=== PATIENT | female | born 1935 | race Caucasian/White ===

== ENCOUNTER 2016-11-27 16:40 | Emergency (ER) | payer OTHER ==
[~2016-11-27] VITALS: Ht 154.9 cm; Wt 95.9 kg
[~2016-11-27 16:40] MED LIST: ACIDOPHILUS1 EAC4 PO; ADVIL,NUPRIN,M200 MG PO; AMLODIPINE BESYL5 MG PO; AVELOX400 MG PO; Ascorbic Acid,Ester- PO; B COMPLETE1 EACH PO; BIOTIN2500 MCG PO; BUDESONIDE0.25 MG/2 IH; CALCIUM + D 601 EACH PO; CALCIUM 600 +1 EAC1 PO; CEFEPIME HCL2 GM IV; CEFTIN500 MG PO; CIPRO500 MG PO; CIPRODEX OTIC7.5 ML RIGHT EAR; CLOPIDOGREL75 MG PO; COZAAR50 MG PO; Caltrate 600/400 PO; Cozaar PO; DAILY VITAMIN1 EAC8 PO; DAIRY RELIE3000 UNIT PO; DAIRY RELIE9000 UNIT PO; DITROPAN XL10 MG PO; DITROPAN XL5 MG PO; DUONEB 2.5-0.5 M3 ML IH; Ditropan PO; Dulcolax PO; ECOTRIN81 M1 PO; EVISTA60 MG PO; Ecotrin PO; FENTANYL1 EAC1 TD; FISH OIL 1,0001 EA10 PO; FISH OIL 1,0001 EA11 PO; FISH OIL 1,0001 EAC7 PO; FISH OIL CONC1 EACH PO; FISH OIL300 MG PO; FLAGYL500 MG PO; FLAX OIL1000 MG PO; FLAXSEED OIL1000 M4 PO; FUROSEMIDE40 MG PO; Feosol PO; Flexeril PO; Folvite PO; GABAPENTIN100 MG PO; GABAPENTIN300 MG PO; GLIPIZIDE ER2.5 M1 PO; GLIPIZIDE XL5 MG PO; GLUCOSAMINE &1 EACH PO; GRALISE600 MG PO; Glucophage PO; Glucotrol PO; K-DUR20 MEQ PO; KENALOG,ARISTOC15 GM TP; KLOR-CON 1010 ME1 PO; KLOR-CON M1010 MEQ PO; LASIX40 MG PO; LEVAQUIN500 MG PO; LIDODERM 5% P1 PATCH TD; LO-DOSE ASPIRIN81 M2 PO; LOPRESSOR25 MG PO; LOSARTAN POTASS50 MG PO; Lasix PO; Lopressor PO; METFORMIN HCL500 MG PO; METOPROLOL TART50 MG PO; METRONIDAZOLE500 MG PO; MILK OF MAGN PO; MONTELUKAST SOD10 MG PO; MORPHINE SULFAT15 M1 PO; MORPHINE SULFAT30 M2 PO; MS CONTIN,ORAMO15 M1 PO; MULTIVITAMIN1 EAC1 PO; Micro-K,K-Tab,K-Dur, PO; Miralax, Glycolax PO; NEURONTIN300 MG PO; NIZORAL A-D120 ML TP; NORVASC5 MG PO; Neurontin PO; OXYBUTYNIN CHLOR5 MG PO; OXYCODONE HCL10 MG PO; OXYCODONE-APAP1 EACH PO; Ocuvite PO; PERCOCET 10/1 TABLET PO; PERCOCET 5/31 TABLET PO; PREDNISONE10 MG PO; PREDNISONE20 MG PO; PROAIR HFA8.5 GM IH; PROTONIX40 MG PO; PROVENTIL,2.5 MG/3 M IH; PULMICORT0.5 MG/21 IH; Percocet 7.5/325,End PO; Pravachol PO; Protonix PO; Proventil,Ventolin H IH; SIMVASTATIN20 MG PO; SINGULAIR10 MG PO; SPIRIVA1 INHALATI IH; Senokot S,Pericolace PO; Skelaxin PO; TRIAMCINOLONE A15 G1 TP; TRICOR145 MG PO; TYLENOL EXTRA500 MG PO; TYLENOL REGULA325 MG PO; Theragran PO; VANCOMYCIN HCL1 GM IV; VITAMIN B COMPLEX PO; VITAMIN D1000 INTUN PO; Vicodin,Norco 5/325 PO; Vitamin D PO; ZOCOR20 MG PO; ZYVOX600 MG PO; celeBREX PO
[2016-11-27 21:59] LABS: EOSINOPHIL (%) 0.5 % (0-5); HEMATOCRIT 37.3 % (36.0-46.0); IMMATURE GRANULOCYTE (%) 0.8 % (0.0-0.7); IMMATURE GRANULOCYTE COUNT 0.1 K/uL; INSTRUMENT ABS NEUTROPHIL CT 4.4 K/uL; LYMPHOCYTE COUNT 2.5 K/uL (1.0-2.8); MCHC 31.9 G/DL (30.0-36.0); MCV 90.8 FL (83-99); MEAN PLAT.VOLUME 9.2 uM^3 (9.5-12.4); MONOCYTE (%) 10.3 % (3-12); MONOCYTE COUNT 0.8 K/uL (0-0.8); NEUTROPHIL (%) 56.1 % (45-76); NEUTROPHIL COUNT 4.4 K/uL (1.8-6.4); PLATELET COUNT 244 K/uL (156-360); RBC DIS.WIDTH-CV 14.9 % (11.8-14.6); RBC DIS.WIDTH-SD 49.4 % (39-53); RED BLOOD COUNT 4.11 M/uL (3.80-5.20); WHITE BLOOD COUNT 7.9 K/uL (4.1-10.2)
[2016-11-27 22:07] LABS: CHLORIDE 103 mEq/L (99-109); POTASSIUM 4.4 mEq/L (3.7-5.4); SODIUM 139 mEq/L (136-147)
[2016-11-27 22:09] LABS: GLUCOSE 102 mg/dL (70-99)
[2016-11-27 22:10] LABS: ANION GAP 11 MEQ/L (2-14)
[2016-11-27 22:11] LABS: TOTAL BILIRUBIN 0.5 mg/dL (0.0-1.0)
[2016-11-27 22:13] LABS: ALKALINE PHOSPHATASE 80 IU/L (3-129); GFR ESTIMATE (CALCULATED) > 59 mL/min/
[2016-11-27 22:14] LABS: UREA NITROGEN (BUN) 10 mg/dL (9-23)
[2016-11-27 22:15] LABS: DIRECT BILIRUBIN 0.2 mg/dL (0.0-0.3)
[2016-11-27 22:19] LABS: INTER. NORMALIZED RATIO 1.2; PTT 28.9 (25-32)
[2016-11-28 04:55] VITALS: BP 142/79
== END 2016-11-28 04:35 | disposition short-term general hospital (02) ==
LOC: RAD 16:40 → EME 16:40
PROVIDERS: Personal Emergency Response Attendant
DX: I82.220 Acute embolism and thrombosis of inferior vena cava (principal); S37.812A Contusion of adrenal gland, initial encounter; X58.XXXA Exposure to other specified factors, initial encounter; R11.0 Nausea; R42 Dizziness and giddiness; R19.7 Diarrhea, unspecified; I10 Essential (primary) hypertension; E78.5 Hyperlipidemia, unspecified; E11.9 Type 2 diabetes mellitus without complications; J44.9 Chronic obstructive pulmonary disease, unspecified; Z86.718 Personal history of other venous thrombosis and embolism; Z95.0 Presence of cardiac pacemaker; Z79.02 Long term (current) use of antithrombotics/antiplatelets; Z79.82 Long term (current) use of aspirin; Z79.84 Long term (current) use of oral hypoglycemic drugs; Z87.891 Personal history of nicotine dependence
CPT/HCPCS: 74177; 80048 91; 80076; 81003; 85025 91; 85610; 85730; 93005; J2270; J2405